=== PATIENT | male | born 1980 | race Caucasian/White ===

== ENCOUNTER 2021-05-14 00:09 | Emergency (ER) | payer BC ==
[~2021-05-14] VITALS: Ht 180.3 cm; Wt 104.3 kg
[2021-05-14 00:22] VITALS: BP 147/86
[2021-05-14] MEDS ORDERED: NEO/5DRO3 EACHEYE (00:39)
== END 2021-05-14 00:51 | disposition home or self-care (01) ==
LOC: ER 00:16
DX: H10.89 Other conjunctivitis (principal); Z79.899 Other long term (current) drug therapy

== ENCOUNTER 2021-06-07 02:22 | Emergency (ER) | payer BC ==
[~2021-06-07] VITALS: Ht 180.3 cm; Wt 106.6 kg
[~2021-06-07 02:22] MED LIST: NEO/5DRO3 EACHEYE
[2021-06-07] MEDS ORDERED: FLUORESCEIN SODIUM OPHTH 1 EA STRIP ONE (02:44)
[2021-06-07] MEDS ORDERED: NEO/5DRO3 EACHEYE (02:57)
--- NOTE | 2021-06-07 03:05 | NUR ---
Patient discharged to home in stable condition. Written and verbal after care instructions given. Patient verbalizes understanding of instruction.
[2021-06-07 04:07] VITALS: BP 129/84
== END 2021-06-07 04:08 | disposition home or self-care (01) ==
LOC: ER 02:37
DX: H20.9 Unspecified iridocyclitis (principal)

== ENCOUNTER 2022-12-04 22:52 | Emergency (ER) | payer SELFPAY ==
[~2022-12-04] VITALS: Ht 180.3 cm; Wt 102.1 kg
[2022-12-04] MEDS ORDERED: FLUORESCEIN SODIUM OPHTH 1 EA STRIP ONE (23:25)
[2022-12-05] VITALS: BP 124/70
[2022-12-05] MEDS ORDERED: FLUORESCEIN SODIUM OPHTH 1 EA STRIP OP ONE
[2022-12-05] MEDS ORDERED: TETRACAINE HCL 0.5% OPHTALMIC 15 ML BOTTLE OP ONE
[2022-12-05] MEDS ORDERED: CIPR2.5D14 RIGHTEYE (00:08)
--- NOTE | 2022-12-05 00:17 | NUR ---
Patient discharged to home in stable condition. Written and verbal after care instructions given. Patient verbalizes understanding of instruction.
== END 2022-12-05 00:19 | disposition home or self-care (01) ==
LOC: ER 22:53
DX: S05.01XA Injury of conjunctiva and corneal abrasion without foreign body, right eye, initial encounter (principal); Z60.2 Problems related to living alone; Z79.899 Other long term (current) drug therapy; W22.8XXA Striking against or struck by other objects, initial encounter; Y93.89 Activity, other specified; Y92.89 Other specified places as the place of occurrence of the external cause; Y99.8 Other external cause status